=== PATIENT | male | born 1995 | race Caucasian/White ===

== ENCOUNTER 2017-12-21 01:15 | Emergency (ER) | payer OTHER ==
[~2017-12-21] VITALS: Ht 170.2 cm; Wt 81.6 kg
[2017-12-21 01:15] VITALS: BP_SYST 129
[2017-12-21] MEDS ORDERED: IBUPROFEN 800 MG TABLET PO ONE (01:30)
[2017-12-21] MEDS ORDERED: ACETAMINOPHEN 500 MG TABLET PO ONE (01:30)
[2017-12-21 01:46] VITALS: BP_SYST 134
== END 2017-12-21 01:46 ==
LOC: SED 01:15
DX: S00.83XA Contusion of other part of head, initial encounter (principal); F10.129 Alcohol abuse with intoxication, unspecified; V89.2XXA Person injured in unspecified motor-vehicle accident, traffic, initial encounter; Y93.89 Activity, other specified; Y92.488 Other paved roadways as the place of occurrence of the external cause; Y99.8 Other external cause status
CPT/HCPCS: 99283